=== PATIENT | female | born 1990 | race Two or more races ===

== ENCOUNTER 2023-09-20 09:55 | Emergency (ER) | payer OTHER ==
[~2023-09-20] VITALS: Ht 160 cm; Wt 60.6 kg
[2023-09-20 11:06] VITALS: BP 113/75; PULSE 84; RESP 16; TEMP 97.9; O2SAT 99
[2023-09-20] MEDS ORDERED: METH-1181 PO (11:19)
[2023-09-20] MEDS ORDERED: IBUP-1456 PO (11:19)
== END 2023-09-20 11:34 | disposition home or self-care (01) ==
LOC: ER 09:55
DX: S46.911A Strain of unspecified muscle, fascia and tendon at shoulder and upper arm level, right arm, initial encounter (principal); X58.XXXA Exposure to other specified factors, initial encounter; Y93.89 Activity, other specified; Y92.89 Other specified places as the place of occurrence of the external cause; Y99.8 Other external cause status
CPT/HCPCS: 73030